=== PATIENT | female | born 1950 | race African-American/Black ===

== ENCOUNTER 2021-10-23 15:57 | Emergency (ER) | payer OTHER, MEDICAID ==
[~2021-10-23] VITALS: Ht 165.1 cm; Wt 50.0 kg
[2021-10-23 16:40] VITALS: BP 93/61
[2021-10-23 16:53] LABS: HEMOGLOBIN. 11.1 g/dL (12.0-16.0); MEAN CORPUSCULAR HEMOGLOBIN 32.3 pg (28.0-32.0); MEAN CORPUSCULAR VOLUME 98.6 fL (81.0-99.0); MEAN PLATELET VOLUME 8.1 fl (7.4-10.4); PLATELET 154 x1000/uL (130-400); RED BLOOD CELL COUNT 3.45 mill/uL (4.2-5.4); RED CELL DISTRIBUTION WIDTH 15.6 % (11.6-14.6)
[2021-10-23 17:01] LABS: CHLORIDE 103 mEq/L (98-107)
[2021-10-23 17:26] LABS: PLATELET ESTIMATE NORMAL
== END 2021-10-23 19:05 | disposition home or self-care (01) ==
LOC: ER 15:57
DX: R53.1 Weakness (principal); I13.11 Hypertensive heart and chronic kidney disease without heart failure, with stage 5 chronic kidney disease, or end stage renal disease; N18.6 End stage renal disease; Z99.2 Dependence on renal dialysis; Z94.1 Heart transplant status
CPT/HCPCS: 36415; 71045; 80053; 83880; 84484; 85025; 93005; 99285

== ENCOUNTER 2025-03-07 14:49 | Inpatient (IN) | payer OTHER, MEDICAID ==
[~2025-03-07] VITALS: Ht 157.5 cm; Wt 46.7 kg
[2025-03-07 14:51] VITALS: O2SAT 99
[2025-03-07 15:48] LABS: CREATININE 3.6 mg/dL (0.6-1.0); TROPONIN I HIGH SENSITIVITY 8 ng/L (3.0-34); UREA NITROGEN BLOOD 11 mg/dL (9-23)
[2025-03-07 15:50] LABS: ASPARTATE AMINOTRANSFERASE 21 IU/L (<34); BILIRUBIN DIRECT < 0.1 mg/dL (<=3.0); BILIRUBIN TOTAL 0.2 mg/dL (0.1-1.0); PROTEIN TOTAL 6.5 g/dL (6.0-8.3)
[2025-03-07] MEDS: SODIUM CHLORIDE 0.9% 500 ML IV ONE (16:12)
[2025-03-07 16:16] LABS: HEMATOCRIT. 30.7 % (36.0-48.0); HEMOGLOBIN. 10.0 g/dL (12.0-16.0); RED BLOOD CELL COUNT 3.23 mill/uL (4.2-5.4); RED CELL DISTRIBUTION WIDTH 16.8 % (11.6-14.6)
[2025-03-07 16:23] LABS: MEAN PLATELET VOLUME 9.3 fl (7.4-10.4); PLATELET 192 x1000/uL (130-400)
[2025-03-07 16:40] LABS: INR 1.0
[2025-03-07 16:48] LABS: BASOPHILS % MANUAL 1.0 % (0.0-2.0); EOSINOPHILS % MANUAL 1.0 % (0.0-5.0); LYMPHOCYTES % MANUAL 36.0 % (20.0-60.0); MONOCYTES % MANUAL 18.0 % (2.0-8.0); NEUTROPHILS % MANUAL 44.0 % (45.0-75.0); PLATELET ESTIMATE NORMAL
[2025-03-07] MEDS: PIPERACILLIN/TAZO 3.375G/50ML 50 ML IV STA (17:14)
[2025-03-07] MEDS ORDERED: ONDANSETRON HCL 4MG/2ML INJ IV PRN (18:15)
[2025-03-07] MEDS ORDERED: MAGNESIUM/ALUMINUM HYDROXIDE/SIMETHICONE 30ML UDC PO PRN (18:15)
[2025-03-07] MEDS ORDERED: DEXTROSE 50% WATER 50ML SYRINGE IV PRN (18:15)
[2025-03-07] MEDS ORDERED: DOCUSATE SODIUM 100MG CAPSULE PO PRN (18:15)
[2025-03-07] MEDS ORDERED: MIDODRINE HCL 5MG TABLET PO PRN (18:15)
[2025-03-07] MEDS ORDERED: ACETAMINOPHEN 325MG TABLET PO PRN (18:15)
[2025-03-07] MEDS ORDERED: IPRATROPIUM/ALBUTEROL 0.5-3(2.5)MG/3ML NEB HHN PRN (18:15)
[2025-03-07] MEDS ORDERED: GUAIFENESIN 200MG/10ML SUGAR FREE UDC PO PRN (18:15)
[2025-03-07] MEDS: VANCOMYCIN 1.25GM/250ML IV SCH (19:16)
[2025-03-07] MEDS ORDERED: NON FORMULARY MED XX SCH (19:30)
[2025-03-07 19:50] LABS: PHOSPHORUS 1.9 mg/dL (2.5-4.9)
[2025-03-07 19:54] LABS: FOLIC ACID (FOLATE) SERUM > 20.00 ng/mL (>5.38); VITAMIN B12 SERUM 1691 pg/mL (211-911)
[2025-03-07] MEDS: SODIUM CHLORIDE 0.9% 1,000 ML IV SCH (20:05)
[2025-03-07 20:45] VITALS: BP 127/62; PULSE 71; RESP 18; TEMP 36.7; TEMP 36.7516; O2SAT 98
[2025-03-07] MEDS: BLOOD SUGAR DIAGNOSTIC STRIP TEST SCH (21:00)
[2025-03-07] MEDS: FAMOTIDINE 20MG TABLET PO SCH (21:00)
[2025-03-07] MEDS: MELATONIN 3MG TABLET PO SCH (23:00)
[2025-03-07] MEDS ORDERED: FOLI1TAB87 PO (23:23)
[2025-03-07] MEDS ORDERED: IMOD PO (23:23)
[2025-03-07] MEDS ORDERED: MIDO2.5T3 PO (23:23)
[2025-03-07] MEDS ORDERED: TACR1CAP PO (23:23)
[2025-03-07] MEDS ORDERED: METH-372 PO (23:23)
[2025-03-08 00:25] VITALS: BP 104/68; PULSE 74; RESP 18; TEMP 36.6; O2SAT 99
[2025-03-08] MEDS ORDERED: MELATONIN 3MG TABLET ONE (02:49)
[2025-03-08 04:00] VITALS: BP 111/67; PULSE 73; RESP 17; TEMP 36.4; O2SAT 99
[2025-03-08] MEDS ORDERED: IMOD PO (07:02)
[2025-03-08] MEDS ORDERED: DORZ10DR8 EACHEYE (07:02)
[2025-03-08] MEDS ORDERED: TIMO15DR12 EACHEYE (07:02)
[2025-03-08] MEDS ORDERED: MIDO2.5T3 PO (07:03)
[2025-03-08] MEDS ORDERED: LATA2.5D14 EACHEYE (07:04)
[2025-03-08] MEDS ORDERED: BRIM5DRO6 EACHEYE (07:04)
[2025-03-08] MEDS ORDERED: TACR1CAP PO ×2 (07:05)
[2025-03-08 07:16] LABS: TRIGLYCERIDE 89 mg/dL (0-150); UREA NITROGEN BLOOD 23 mg/dL (9-23)
[2025-03-08 07:17] LABS: LDL CHOLESTEROL 108 mg/dL (5-100)
[2025-03-08 07:18] LABS: T4 FREE 1.15 ng/dL (0.89-1.76)
[2025-03-08 07:32] LABS: HEMATOCRIT. 27.6 % (36.0-48.0); HEMOGLOBIN. 9.2 g/dL (12.0-16.0); MEAN PLATELET VOLUME 9.1 fl (7.4-10.4); PLATELET 198 x1000/uL (130-400); RED BLOOD CELL COUNT 2.97 mill/uL (4.2-5.4); RED CELL DISTRIBUTION WIDTH 16.3 % (11.6-14.6)
[2025-03-08 07:37] LABS: CREATININE 4.8 mg/dL (0.6-1.0)
[2025-03-08 08:00] VITALS: BP 113/67; PULSE 77; RESP 17; O2SAT 100
[2025-03-08] MEDS: TACROLIMUS 1MG CAPSULE PO SCH (09:28)
[2025-03-08 12:00] VITALS: BP 112/56; PULSE 68; TEMP 36.3; O2SAT 100
[2025-03-08] MEDS: POLYETHYLENE GLYCOL 3350 (17GM) 1 DOSE PACK PO SCH (12:49)
[2025-03-08] MEDS ORDERED: TACR5CAP PO (13:26)
[2025-03-08] MEDS ORDERED: ROSU40TA PO (13:27)
[2025-03-08] MEDS: ACETAMINOPHEN 325MG TABLET PO PRN (14:09)
[2025-03-08] MEDS ORDERED: NALOXONE HCL 0.4MG/ML VIAL IV PRN (16:30)
[2025-03-08] MEDS: HYDROCODONE/ACETAMINOPHEN 5/325MG TABLET PO PRN (16:52)
[2025-03-08] MEDS ORDERED: TACROLIMUS 1MG CAPSULE PO SCH (17:00)
[2025-03-08 17:12] LABS: BAND% 3.0 % (1.0-6.0); EOSINOPHILS % MANUAL 4.0 % (0.0-5.0); LYMPHOCYTES % MANUAL 30.0 % (20.0-60.0); MONOCYTES % MANUAL 7.0 % (2.0-8.0); NEUTROPHILS % MANUAL 56.0 % (45.0-75.0); PLATELET ESTIMATE NORMAL
[2025-03-08 20:00] VITALS: BP 118/67; PULSE 70; RESP 16; TEMP 36.3; O2SAT 95
[2025-03-08] MEDS: TACROLIMUS 5MG CAPSULE PO SCH (21:00)
[2025-03-08] MEDS: ATORVASTATIN CALCIUM 40MG TABLET PO SCH (21:01)
[2025-03-08] MEDS: LORAZEPAM 1MG TABLET PO PRN (21:58)
[2025-03-09] VITALS (12 sets, daily range): BP systolic 100–156; BP diastolic 61–78; PULSE 66–82; RESP 16–24; TEMP 36.3–36.89184; O2SAT 95–99
[2025-03-09] MEDS: METHIMAZOLE 5MG TABLET PO SCH (10:54)
[2025-03-09] MEDS: TACROLIMUS 1MG CAPSULE PO SCH (10:54)
[2025-03-09] MEDS: TACROLIMUS 5MG CAPSULE PO SCH (10:55)
[2025-03-09 11:03] LABS: PLATELET 200 x1000/uL (130-400); RED BLOOD CELL COUNT 3.18 mill/uL (4.2-5.4); RED CELL DISTRIBUTION WIDTH 17.0 % (11.6-14.6)
[2025-03-09] MEDS ORDERED: EPOE40009 SUBCUT (13:05)
[2025-03-09] MEDS ORDERED: MIDO5TAB4 PO (13:05)
[2025-03-09] MEDS ORDERED: FAMO20TA8 PO (13:05)
[2025-03-09] MEDS ORDERED: EPOETIN ALFA-EPBX 4,000 UNITS/ML VIAL SUBCUT SCH (21:00)
== END 2025-03-09 16:10 | disposition home or self-care (01) | DRG 640 ==
LOC: ER 14:49 → 5WST 17:30 → EDBEDREQ 17:34 → EDBEDREQTM 17:34 → ENRESERV 19:41
PROVIDERS: ADMIT Internal Medicine; ATTEND Internal Medicine
PROC: 5A1D70Z Performance of Urinary Filtration, Intermittent, Less than 6 Hours Per Day (ICD-10-PCS; principal; 2025-03-09)
DX: E86.0 Dehydration (principal); N18.6 End stage renal disease; I13.11 Hypertensive heart and chronic kidney disease without heart failure, with stage 5 chronic kidney disease, or end stage renal disease; Z94.1 Heart transplant status; I95.3 Hypotension of hemodialysis; E87.20 Acidosis, unspecified; E05.90 Thyrotoxicosis, unspecified without thyrotoxic crisis or storm; K56.41 Fecal impaction; K57.30 Diverticulosis of large intestine without perforation or abscess without bleeding; E27.9 Disorder of adrenal gland, unspecified; D53.9 Nutritional anemia, unspecified; E86.9 Volume depletion, unspecified; E11.65 Type 2 diabetes mellitus with hyperglycemia; K76.89 Other specified diseases of liver; K52.9 Noninfective gastroenteritis and colitis, unspecified; I45.10 Unspecified right bundle-branch block; Z90.5 Acquired absence of kidney; Z79.899 Other long term (current) drug therapy; Z99.2 Dependence on renal dialysis; Z90.81 Acquired absence of spleen
CPT/HCPCS: 36415; 71045; 74176; 80048; 80061; 80076; 80197; 82607; 82728; 82746; 82962; 83036; 83540; 83550; 83605; 83735; 83880; 84100; 84145; 84439; 84443; 84484; 85025; 85027; 90935; 93005; 93970; 97166; 99291; J2543; J3373; J7040; J7507